=== PATIENT | female | born 1975 | race Caucasian/White ===

== ENCOUNTER 2021-03-01 06:49 | Inpatient (IN) | payer SELFPAY ==
[2021-03-01] MEDS ORDERED: Senokot S 8.6-50 MG TAB PO PRN (08:38)
[2021-03-01] MEDS ORDERED: Bisacodyl 5 MG TAB PO PRN (08:38)
[2021-03-01] MEDS ORDERED: Cyclobenzaprine 10 MG TAB PO PRN (08:50)
[2021-03-01] MEDS ORDERED: Ketorolac Tromethamine 30 MG/ML VIAL ONE (09:27)
[2021-03-01] MEDS ORDERED: Ondansetron PF 4 MG/2 ML Vial ONE (09:27)
[2021-03-01 09:28] LABS: #Basophils 0.1 thou/uL (0.0-0.2); #Eosinphils 0.1 thou/uL (0.0-0.7); #Monocytes 1.1 thou/uL (0.11-0.59); %Basophils 0.5 % (0.0-1.0); %Lymphocytes 19.1 % (21.0-51.0); %Monocytes 10.9 % (0.0-10.0); %Neutrophils 68.5 % (42.0-75.0); Hemoglobin 11.7 g/dL (12.0-16.0); Mean Corpuscular HGB CONC 32.8 g/dL (32.0-36.0); Mean Corpuscular Hemoglobin 31.3 pg (27.0-31.0); Mean Corpuscular Volume 95.4 fL (78.0-98.0); Mean Platelet Volume 6.9 fL (7.4-10.4); Platelet Count 404 thou/uL (130-400); RBC Distribution Width 11.5 % (11.5-14.5); Red Blood Cell (RBC) Count 3.74 mill/uL (4.20-5.40); White Blood Cell (WBC) Count 10.2 thou/uL (4.8-10.8)
[2021-03-01 09:48] LABS: ALT (SGPT) Less than 7 U/L (8-55); AST (SGOT) 8 U/L (5-34); Albumin 3.8 g/dL (3.5-5.0); Alkaline Phosphatase 97 U/L (40-110); Anion Gap 14 mmol/L (10-20); BUN (Urea Nitrogen) Less than 4 mg/dL (7.0-18.7); Bilirubin, Total 0.5 mg/dL (0.2-1.2); Calc. Creatinine Clearance 0 mL/min (70-130); Calcium 9.1 mg/dL (7.8-10.44); Carbon Dioxide 22 mmol/L (22-29); Chloride 99 mmol/L (98-107); Glucose 84 mg/dL (70-105); Potassium 4.2 mmol/L (3.5-5.1); Protein, Total 6.8 g/dL (6.0-8.3); Sodium 131 mmol/L (136-145)
[2021-03-01 09:51] LABS: INR-International Normal Ratio 1.1; PTT 37.6 sec (22.9-36.1); Prothrombin Time 14.3 sec (12.0-14.7)
[2021-03-01 10:19] VITALS: BMI 30.2
[2021-03-01] MEDS: Sodium Chloride 0.9% 1,000 ML IV SCH ×2 (10:46→18:46)
[2021-03-01 10:57] LABS: SARS-CoV-2 NAA Rapid Test Not Detected (NotDetected)
[2021-03-01] MEDS ORDERED: Midazolam HCl 2 mg/2 ml Vial ONE (11:58)
[2021-03-01] MEDS ORDERED: Fentanyl 100 MCG/2 ML VIAL ONE (11:59)
[2021-03-01] MEDS ORDERED: Sodium Bicarbonate 2.5 MEQ/5 ML VIAL ONE (11:59)
[2021-03-01] MEDS: Acetaminophen/Codeine 30-300mg Tablet PO PRN ×2 (13:04→19:57)
[2021-03-01 15:16] LABS: BF Color Brown; Body Fluid Source Abscess Fluid; Clarity Cloudy/Turbid (Clear); Tube # EDTA
[2021-03-01 15:19] LABS: BF Color Gray; Body Fluid Source Abscess Fluid; Clarity Cloudy/Turbid (Clear); Tube # EDTA
[2021-03-01] MEDS: Ondansetron PF 4 MG/2 ML Vial IVP PRN (15:31)
[2021-03-01] MEDS: Ketorolac Tromethamine 30 MG/ML VIAL IVP PRN ×2 (15:32→21:15)
[2021-03-01] MEDS: DULoxetine 60 MG CAP PO SCH (22:09)
[2021-03-01] MEDS: traZODone HCl 50 MG TAB PO SCH (22:11)
[2021-03-02] MEDS: Sodium Chloride 0.9% 1,000 ML IV SCH ×2 (04:53→15:17)
[2021-03-02] MEDS: Amlodipine 5 MG TAB PO SCH (08:07)
[2021-03-02] MEDS: Lisinopril 20 MG TAB PO SCH (08:07)
[2021-03-02] MEDS: tiZANidine HCl 4 MG TAB PO SCH (08:07)
[2021-03-02] MEDS: Ketorolac Tromethamine 30 MG/ML VIAL IVP PRN ×2 (09:04→15:15)
[2021-03-02 09:42] LABS: #Eosinphils 0.1 thou/uL (0.0-0.7); #Lymphocytes 1.5 thou/uL (1.20-3.40); #Monocytes 0.8 thou/uL (0.11-0.59); #Neutrophils 5.6 thou/uL (1.40-6.50); %Basophils 0.5 % (0.0-1.0); %Eosinophils 1.6 % (0.0-10.0); %Lymphocytes 18.2 % (21.0-51.0); %Monocytes 10.3 % (0.0-10.0); %Neutrophils 69.4 % (42.0-75.0); Hemoglobin 10.5 g/dL (12.0-16.0); Mean Corpuscular HGB CONC 33.8 g/dL (32.0-36.0); Mean Corpuscular Volume 94.9 fL (78.0-98.0); Mean Platelet Volume 6.8 fL (7.4-10.4); Platelet Count 383 thou/uL (130-400); RBC Distribution Width 11.4 % (11.5-14.5); Red Blood Cell (RBC) Count 3.28 mill/uL (4.20-5.40); White Blood Cell (WBC) Count 8.1 thou/uL (4.8-10.8)
[2021-03-02 09:59] LABS: Anion Gap 14 mmol/L (10-20); BUN (Urea Nitrogen) 5 mg/dL (7.0-18.7); Calc. Creatinine Clearance 121 mL/min (70-130); Calcium 8.4 mg/dL (7.8-10.44); Carbon Dioxide 20 mmol/L (22-29); Chloride 109 mmol/L (98-107); Glucose 93 mg/dL (70-105); Potassium 4.3 mmol/L (3.5-5.1); Sodium 139 mmol/L (136-145)
[2021-03-02] MEDS: Piperacillin/Tazobactam 3.375 GM in Sodium Chloride 0.9% 100 ML IVPB SCH ×3 (11:26→23:35)
[2021-03-02] MEDS: Nicotine 21 MG PATCH TD SCH (17:43)
[2021-03-02] MEDS: Acetaminophen/Codeine 30-300mg Tablet PO PRN (19:16)
[2021-03-02] MEDS: Ondansetron PF 4 MG/2 ML Vial IVP PRN (19:16)
[2021-03-02] MEDS: DULoxetine 60 MG CAP PO SCH (20:44)
[2021-03-02] MEDS: Morphine 2 MG/ML VIAL SLOW IVP PRN (20:45)
[2021-03-02] MEDS: traZODone HCl 50 MG TAB PO SCH (20:45)
[2021-03-03] MEDS: Sodium Chloride 0.9% 1,000 ML IV SCH ×3 (01:07→19:14)
[2021-03-03] MEDS: Piperacillin/Tazobactam 3.375 GM in Sodium Chloride 0.9% 100 ML IVPB SCH ×3 (05:36→19:14)
[2021-03-03] MEDS: tiZANidine HCl 4 MG TAB PO SCH (07:58)
[2021-03-03] MEDS: Morphine 2 MG/ML VIAL SLOW IVP PRN ×3 (07:58→20:56)
[2021-03-03] MEDS: Lisinopril 20 MG TAB PO SCH (07:58)
[2021-03-03] MEDS: Amlodipine 5 MG TAB PO SCH (07:58)
[2021-03-03] MEDS: Ondansetron PF 4 MG/2 ML Vial IVP PRN ×3 (07:59→21:00)
[2021-03-03] MEDS ORDERED: Nicotine 21 MG PATCH TD SCH (09:00)
[2021-03-03] MEDS: Nicotine 21 MG PATCH TD SCH (15:28)
[2021-03-03] MEDS ORDERED: PROPOFOL 20 ML ONE (16:56)
[2021-03-03] MEDS ORDERED: Midazolam HCl 2 mg/2 ml Vial ONE (17:21)
[2021-03-03] MEDS ORDERED: Fentanyl 100 MCG/2 ML VIAL ONE (17:21)
[2021-03-03] MEDS ORDERED: Lidocaine 1% (PF) 30 ML VIAL ONE (17:44)
[2021-03-03] MEDS: DULoxetine 60 MG CAP PO SCH (20:55)
[2021-03-03] MEDS: traZODone HCl 50 MG TAB PO SCH (20:56)
[2021-03-04] MEDS: Piperacillin/Tazobactam 3.375 GM in Sodium Chloride 0.9% 100 ML IVPB SCH ×4 (00:24→17:18)
[2021-03-04] MEDS: Morphine 2 MG/ML VIAL SLOW IVP PRN ×4 (03:04→20:50)
[2021-03-04] MEDS: Ondansetron PF 4 MG/2 ML Vial IVP PRN ×4 (03:04→20:51)
[2021-03-04] MEDS: Sodium Chloride 0.9% 1,000 ML IV SCH ×2 (05:05→08:56)
[2021-03-04] MEDS: Amlodipine 5 MG TAB PO SCH (08:54)
[2021-03-04] MEDS: Lisinopril 20 MG TAB PO SCH (08:54)
[2021-03-04] MEDS: tiZANidine HCl 4 MG TAB PO SCH (08:54)
[2021-03-04 11:07] LABS: #Eosinphils 0.3 thou/uL (0.0-0.7); #Lymphocytes 1.3 thou/uL (1.20-3.40); #Monocytes 0.9 thou/uL (0.11-0.59); #Neutrophils 5.3 thou/uL (1.40-6.50); %Basophils 0.6 % (0.0-1.0); %Eosinophils 3.9 % (0.0-10.0); %Lymphocytes 16.9 % (21.0-51.0); %Monocytes 11.6 % (0.0-10.0); %Neutrophils 67.1 % (42.0-75.0); Hemoglobin 10.7 g/dL (12.0-16.0); Mean Corpuscular HGB CONC 33.4 g/dL (32.0-36.0); Mean Corpuscular Hemoglobin 32.1 pg (27.0-31.0); Mean Corpuscular Volume 96.2 fL (78.0-98.0); Mean Platelet Volume 6.7 fL (7.4-10.4); Platelet Count 357 thou/uL (130-400); RBC Distribution Width 11.4 % (11.5-14.5); Red Blood Cell (RBC) Count 3.34 mill/uL (4.20-5.40); White Blood Cell (WBC) Count 7.9 thou/uL (4.8-10.8)
[2021-03-04 11:22] LABS: Anion Gap 14 mmol/L (10-20); BUN (Urea Nitrogen) Less than 4 mg/dL (7.0-18.7); Calc. Creatinine Clearance 87 mL/min (70-130); Calcium 8.4 mg/dL (7.8-10.44); Carbon Dioxide 17 mmol/L (22-29); Chloride 111 mmol/L (98-107); Glucose 92 mg/dL (70-105); Potassium 3.8 mmol/L (3.5-5.1); Sodium 138 mmol/L (136-145)
[2021-03-04 11:24] LABS: Vancomycin, Trough 27.5 ug/mL
[2021-03-04] MEDS: Nicotine 21 MG PATCH TD SCH (17:16)
[2021-03-04] MEDS: traZODone HCl 50 MG TAB PO SCH (20:46)
[2021-03-04] MEDS: DULoxetine 60 MG CAP PO SCH (20:46)
[2021-03-05] MEDS: Sodium Chloride 0.9% 1,000 ML IV SCH ×2 (00:31→11:08)
[2021-03-05] MEDS: Piperacillin/Tazobactam 3.375 GM in Sodium Chloride 0.9% 100 ML IVPB SCH ×2 (00:31→05:25)
[2021-03-05] MEDS: Morphine 2 MG/ML VIAL SLOW IVP PRN (05:25)
[2021-03-05] MEDS: Ondansetron PF 4 MG/2 ML Vial IVP PRN (05:26)
[2021-03-05 08:00] VITALS: TEMP 97.9
[2021-03-05] MEDS: Lisinopril 20 MG TAB PO SCH (08:59)
[2021-03-05] MEDS: tiZANidine HCl 4 MG TAB PO SCH (08:59)
[2021-03-05 09:00] VITALS: BP 143/84
[2021-03-05] MEDS: Amlodipine 5 MG TAB PO SCH (09:00)
[2021-03-05] MEDS ORDERED: Doxycycline 100 MG CAP PO SCH (09:00)
[2021-03-05] MEDS ORDERED: Rifampin 300 MG CAP PO SCH (10:00)
[2021-03-05 10:20] LABS: Vancomycin, Random 12.3 ug/mL (See Comment)
[2021-03-05] MEDS: Acetaminophen/Codeine 30-300mg Tablet PO PRN (11:08)
== END 2021-03-05 14:44 | disposition home or self-care (01) | DRG 581 ==
LOC: ERS 06:49 → T4-A 08:09
PROVIDERS: ADMIT Internal Medicine; ATTEND Internal Medicine
PROC: 0W9F3ZX Drainage of Abdominal Wall, Percutaneous Approach, Diagnostic (ICD-10-PCS; principal; 2021-03-01)
PROC: 0J980ZZ Drainage of Abdomen Subcutaneous Tissue and Fascia, Open Approach (ICD-10-PCS; 2021-03-01)
DX: L02.211 Cutaneous abscess of abdominal wall (principal); F17.210 Nicotine dependence, cigarettes, uncomplicated; Z20.822 Contact with and (suspected) exposure to COVID-19; L03.311 Cellulitis of abdominal wall; B95.62 Methicillin resistant Staphylococcus aureus infection as the cause of diseases classified elsewhere; F41.9 Anxiety disorder, unspecified; F32.9 Major depressive disorder, single episode, unspecified; M06.9 Rheumatoid arthritis, unspecified; M79.7 Fibromyalgia; I10 Essential (primary) hypertension; E66.01 Morbid (severe) obesity due to excess calories; G40.909 Epilepsy, unspecified, not intractable, without status epilepticus; Z90.710 Acquired absence of both cervix and uterus; Z79.899 Other long term (current) drug therapy; Z68.30 Body mass index [BMI] 30.0-30.9, adult; Z98.84 Bariatric surgery status
CPT/HCPCS: 36415; 49020; 77002; 80048; 80053; 80202; 83605; 85025; 85060; 85610; 85730; 87070; 87077; 87186; 87205; 89051; 96374; 96375; J1885; J2001; J2250; J2270; J2405; J2543; J2704; J3010; J3370; J3490; J7030; U0002; U0005